=== PATIENT | male | born 1995 | race Caucasian/White ===

== ENCOUNTER → 2017-08-31 | Outpatient (CLI) | payer OTHER ==
[~2017-08-31] MED LIST: AMOXICILLIN500 M2 PO
[2017-08-31 11:23] LABS: HEMATOCRIT 50.6 % (42.0-52.0); HEMOGLOBIN 16.6 g/dl (14.0-18.0); MEAN CELL VOLUME 86.1 fl (80.0-94.0); MEAN CORPUSCULAR HGB 28.2 pg (27.0-31.0); MEAN CORPUSCULAR HGB CONC 32.8 g/dl (33.0-37.0); MEAN PLATELET VOLUME 11.9 fl (9.6-12.3); RED BLOOD COUNT 5.88 10*6/uL (4.50-5.90); RED CELL DISTRI WIDTH 12.6 % (0-14.5); WHITE BLOOD COUNT 8.2 10*3/uL (4.8-10.8)
[2017-08-31 11:46] LABS: ALBUMIN 4.1 gm/dl (3.1-4.5); BUN 12 mg/dl (7-24); CHLORIDE 104 mmol/L (98-107); CHOLESTEROL 199 mg/dL (<200); CREATININE 1.03 mg/dL (0.70-1.30); SGOT/AST 27 IU/L (3-35); SGPT/ALT 46 U/L (12-78); SODIUM 140 mmol/L (136-145); TOTAL PROTEIN 7.8 gm/dL (6.4-8.2); TRIGLYCERIDES 209 mg/dl (<150); VLDL CHOLESTEROL 42 mg/dL (6-40)
[2017-08-31 11:58] LABS: ALKALINE PHOSPHATASE 134 U/L (45-117); HDL CHOLESTEROL 28 mg/dl (40-60); LDL CHOLESTEROL 129 mg/dL (9-159)
== END | disposition home or self-care (01) ==
LOC: LAB 10:42
PROVIDERS: Family Medicine
DX: I10 Essential (primary) hypertension (principal); E74.9 Disorder of carbohydrate metabolism, unspecified; E66.9 Obesity, unspecified

== ENCOUNTER → 2019-01-07 | Outpatient (CLI) | payer OTHER ==
[2019-01-07 12:03] LABS: HEMATOCRIT 49.6 % (42.0-52.0); HEMOGLOBIN 16.6 g/dl (14.0-18.0); MEAN CELL VOLUME 87.6 fl (80.0-94.0); MEAN CORPUSCULAR HGB 29.3 pg (27.0-31.0); MEAN CORPUSCULAR HGB CONC 33.5 g/dl (33.0-37.0); MEAN PLATELET VOLUME 11.8 fl (9.6-12.3); RED BLOOD COUNT 5.66 10*6/uL (4.50-5.90); RED CELL DISTRI WIDTH 13.1 % (0-14.5); WHITE BLOOD COUNT 8.9 10*3/uL (4.8-10.8)
[2019-01-07 12:30] LABS: ALBUMIN 4.1 gm/dl (3.1-4.5); BUN 5 mg/dl (7-24); CHLORIDE 106 mmol/L (98-107); CHOLESTEROL 162 mg/dL (<200); POTASSIUM 3.7 mmol/L (3.5-5.1); SGOT/AST 25 IU/L (3-35); SGPT/ALT 46 U/L (12-78); SODIUM 143 mmol/L (136-145); TOTAL PROTEIN 7.9 gm/dL (6.4-8.2)
[2019-01-07 12:35] LABS: ALKALINE PHOSPHATASE 121 U/L (45-117); HDL CHOLESTEROL 35 mg/dl (40-60); LDL CHOLESTEROL 100 mg/dL (9-159); TRIGLYCERIDES 135 mg/dl (<150); VLDL CHOLESTEROL 27 mg/dL (6-40)
[2019-01-11 17:11] LABS: COTININE None Detected (.); NICOTINE None Detected (.)
== END | disposition home or self-care (01) ==
LOC: LAB 11:35
PROVIDERS: Family Medicine
DX: Z13.220 Encounter for screening for lipoid disorders (principal); Z02.1 Encounter for pre-employment examination; E66.9 Obesity, unspecified; R53.83 Other fatigue

== ENCOUNTER 2020-04-09 13:03 | Emergency (ER) | payer OTHER ==
[~2020-04-09] VITALS: Ht 175.2 cm; Wt 101.2 kg
[2020-04-09 13:37] VITALS: BP 141/88
== END 2020-04-09 14:56 | disposition home or self-care (01) ==
LOC: ED 13:03
DX: S16.1XXA Strain of muscle, fascia and tendon at neck level, initial encounter (principal); V49.9XXA Car occupant (driver) (passenger) injured in unspecified traffic accident, initial encounter; Y93.89 Activity, other specified; Y92.89 Other specified places as the place of occurrence of the external cause; Y99.8 Other external cause status

== ENCOUNTER → 2021-03-29 | Outpatient (CLI) | payer OTHER | END | disposition home or self-care (01) | LOC: RAD 10:50 | PROVIDERS: ATTEND Nurse Practitioner Family | DX: S99.912A Unspecified injury of left ankle, initial encounter (principal); X58.XXXA Exposure to other specified factors, initial encounter; Y93.89 Activity, other specified; Y92.89 Other specified places as the place of occurrence of the external cause; Y99.8 Other external cause status ==

== ENCOUNTER → 2025-03-02 | Outpatient (CLI) | payer OTHER ==
[2025-03-02 08:30] LABS: BUN 13 mg/dl (9-23); SGPT/ALT 40 U/L (5-49)
== END | disposition home or self-care (01) ==
LOC: LAB 07:27
PROVIDERS: ATTEND Podiatrist Foot & Ankle Surgery
DX: B35.3 Tinea pedis (principal)